=== PATIENT | male | born 1960 | race African-American/Black ===

== ENCOUNTER 2019-11-03 15:05 | Emergency (ER) | payer OTHER ==
[~2019-11-03] VITALS: Ht 188 cm; Wt 127.0 kg
[2019-11-03 17:40] VITALS: BP 127/71
== END 2019-11-03 17:40 | disposition home or self-care (01) ==
LOC: ED 15:05
DX: S09.8XXA Other specified injuries of head, initial encounter (principal); M54.5 Low back pain; F17.210 Nicotine dependence, cigarettes, uncomplicated; V49.49XA Driver injured in collision with other motor vehicles in traffic accident, initial encounter; Y93.I9 Activity, other involving external motion; Y92.413 State road as the place of occurrence of the external cause; Y99.8 Other external cause status